=== PATIENT | male | born 1985 ===

== ENCOUNTER 2017-06-23 07:38 | Emergency (ER) | payer SELFPAY ==
[2017-06-23 07:48] VITALS: BP 125/82; PULSE 80; RESP 17; TEMP 98.9; O2SAT 98
--- NOTE | 2017-06-23 08:26 | C.PDOC ---
History Of Present Illness 31 yo male w/o significant PMHx come in for evaluation of cold sx associated with frontal intermittent headache, nasal congestion, runny nose, dry cough gradually developed for past 3 days. Otherwise, pt denies high fever, chills, severe headache, drooling, neck pain, dyspnea, SOB, wheezing, CP, palpitation, abd. pain, N/V/D, UTI sx. Ambulate to ED for evaluation, not in any apparent distress. Time Seen by Provider: 06/23/17 07:55 Chief Complaint (Nursing): Cough, Cold, Congestion History Per: Patient Past Medical History Reviewed: Historical Data, Nursing Documentation, Vital Signs Vital Signs: Last Vital Signs Temp 98.9 F 06/23/17 07:43 Pulse 80 06/23/17 07:43 Resp 17 06/23/17 07:43 BP 125/82 06/23/17 07:43 Pulse Ox 98 06/23/17 08:30 - Medical History PMH: No Chronic Diseases Surgical History: No Surg Hx Family History: States: No Known Family Hx - Social History Hx Tobacco Use: No Hx Alcohol Use: No Hx Substance Use: No - Immunization History Hx Influenza Vaccination: No Review Of Systems Except As Marked, All Systems Reviewed And Found Negative. Constitutional: Positive for: Malaise. Negative for: Fever, Chills ENT: Positive for: Nose Discharge, Nose Congestion. Negative for: Ear Discharge , Throat Pain, Throat Swelling Cardiovascular: Negative for: Chest Pain, Palpitations, Light Headedness Respiratory: Positive for: Cough. Negative for: Shortness of Breath, Wheezing Gastrointestinal: Negative for: Nausea, Vomiting, Abdominal Pain, Diarrhea Genitourinary: Negative for: Dysuria Musculoskeletal: Negative for: Neck Pain Skin: Negative for: Rash Neurological: Positive for: Headache. Negative for: Altered Mental Status, Dizziness Physical Exam - Physical Exam Appears: Well, Non-toxic, No Acute Distress Skin: Normal Color, Warm, Dry, No Rash Head: Normacephalic Eye(s): bilateral: PERRL Ear(s): Bilateral: Normal Nose: No Flaring, Discharge (scant clear rhinorrhea B/L) Oral Mucosa: Moist, No Drooling Throat: No Erythema, No Drooling Neck: Trachea Midline, Supple, Other ((-) meningeal sign) Cardiovascular: Rhythm Regular Respiratory: No Decreased Breath Sounds, No Accessory Muscle Use, No Stridor, No Wheezing Gastrointestinal/Abdominal: Soft, No Tenderness, No Distention, No Guarding Back: No CVA Tenderness Extremity: Normal ROM, No Deformity, No Swelling Neurological/Psych: Oriented x3, Normal Speech ED Course And Treatment O2 Sat by Pulse Oximetry: 98 Pulse Ox Interpretation: Normal Progress Note: On re-eval, pt is afebrile, hemodynamicaly stable. Non-toxic. PulseOx 98% RA. ENT: no acute findings. neck: Supple, (-) meningeal sign. Lungs: CTA B/L, BS equal B/L. Abd: benign. back: (-) CVA tenderness. Neuorlogicaly intact. Pt has clinical findings c/w bronchitis. Pt advised. ref. to F/U with PMD in 2-3 days for re-eval. return to ED if any worsening or new changes. Disposition Counseled Patient/Family Regarding: Diagnosis, Need For Followup, Rx Given - Disposition Referrals: [facility] [Outside] Disposition: HOME/ ROUTINE Disposition Time: 08:23 Condition: STABLE Additional Instructions: Encourage fluids Take medication as prescribed Follow up with PMD in 2-3 days for re-evaluation. Return to ED if any worsening or new changes. Prescriptions: Azithromycin [Zithromax] 250 mg PO DAILY #4 tab Benzonatate [Tessalon Perle] 100 mg PO TID #14 capsule Ibuprofen [Motrin Tab] 600 mg PO Q6 #20 tab Forms: [employer] (Filipino) Print Language: SAUDI ARABIAN - Clinical Impression Clinical Impression: Bronchitis
== END 2017-06-23 08:48 | disposition home or self-care (01) ==
LOC: C.ER 07:38
DX: J40 Bronchitis, not specified as acute or chronic (principal)

== ENCOUNTER 2017-08-06 14:12 | Emergency (ER) | payer OTHER ==
[2017-08-06 14:16] VITALS: BMI 33.3
[2017-08-06 14:19] VITALS: RESP 18
[2017-08-06] MEDS ORDERED: Iohexol 240 (50 ml) PO STA (14:52)
--- NOTE | 2017-08-06 14:52 | C.PDOC ---
History Of Present Illness VIA TRANS 32-YEAR-OLD MALE, PRESENTS TO THE EMERGENCY DEPARTMENT WITH CO PERSISTENT NON- BLOODY DIARRHEA SINCE 06/25, HE WAS GIVEN Z-SUZIE ON 06/23 FOR URI. ON SECOND DAY OF TAKING MEDS HE DEVELOPED DIARRHEA. HE STATES HE STOPPED MEDS, BUT NO IMPROV IN SX. STATES EVERY TIME HE EATS, HE HAS URGE TO GO THIRTY MINS AFTER. NO NAUSEA, + WATERY BM. DENIES FEVER, BACK PAIN, HEADACHE, DIZZINESS, OR ANY OTHER ASSOCIATED SYMPTOMS. NO OTHER COMPLAINTS AT THIS TIME. EXAM NEG Time Seen by Provider: 08/06/17 14:25 Chief Complaint (Nursing): GI Problem History Per: Patient History/Exam Limitations: no limitations Past Medical History Reviewed: Historical Data, Nursing Documentation, Vital Signs Vital Signs: Last Vital Signs Temp 98.3 F 08/06/17 18:17 Pulse 62 08/06/17 18:17 Resp 18 08/06/17 18:17 BP 118/73 08/06/17 18:17 Pulse Ox 98 08/06/17 18:17 Family History: States: Unknown Family Hx - Social History Hx Tobacco Use: No Hx Alcohol Use: No Hx Substance Use: No - Immunization History Hx Influenza Vaccination: No Review Of Systems Except As Marked, All Systems Reviewed And Found Negative. Constitutional: Negative for: Fever, Chills Cardiovascular: Negative for: Chest Pain, Palpitations Respiratory: Negative for: Shortness of Breath Gastrointestinal: Positive for: Diarrhea. Negative for: Nausea, Vomiting, Abdominal Pain Musculoskeletal: Negative for: Back Pain Skin: Negative for: Rash Neurological: Negative for: Weakness, Headache, Dizziness Physical Exam - Physical Exam Appears: Non-toxic, No Acute Distress Skin: Normal Color, Warm, Dry, No Rash Head: Atraumatic Eye(s): bilateral: Normal Inspection Nose: Normal Oral Mucosa: Moist Lips: Normal Appearing Neck: Normal ROM Chest: Symmetrical Cardiovascular: Rhythm Regular, No Murmur Respiratory: Normal Breath Sounds, No Accessory Muscle Use Gastrointestinal/Abdominal: Soft, No Tenderness, No Mass, No Distention, No Guarding, No Rebound Extremity: Normal ROM, No Deformity, No Swelling Neurological/Psych: Oriented x3, Normal Speech ED Course And Treatment - Laboratory Results Result Diagrams: 08/06/17 15:08 08/06/17 15:08 O2 Sat by Pulse Oximetry: 99 (RA) Pulse Ox Interpretation: Normal Progress - Data Reviewed Data Reviewed: Lab, Diagnostic imaging, Old records Disposition Counseled Patient/Family Regarding: Diagnosis, Need For Followup - Disposition Referrals: [facility] [Outside] [facility] [Outside] Disposition: HOME/ ROUTINE Disposition Time: 18:00 Condition: IMPROVED Additional Instructions: ARGUELLO PRUEBA DE ESTELLE, CT SCAN SON NORMALES. SEGUIMIENTO CON ARGUELLO PMD Y / O GASTROENTERLOGO. Prescriptions: Atropine/Diphenoxylate [Lonox 0.025 MG-2.5 MG] 1 tab PO TID PRN #20 tab PRN Reason: Diarrhea Instructions: Antibiotic-Associated Diarrhea (DC) Forms: Go Vocab (Italian) Print Language: IRISH - Clinical Impression Clinical Impression: Diarrhea - Scribe Statement The provider has reviewed the documentation as recorded by the Scribe (Deandra Jenkins) All medical record entries made by the Scribe were at my direction and personally dictated by me. I have reviewed the chart and agree that the record accurately reflects my personal performance of the history, physical exam, medical decision making, and the department course for this patient. I have also personally directed, reviewed, and agree with the discharge instructions and disposition.
[2017-08-06 15:11] LABS: BASO % 0.5 % (0.0-2.0); EOS # 0.5 K/uL (0.0-0.7); EOS % 6.6 % (0.0-4.0); HEMOGLOBIN 14.6 g/dL (12.0-18.0); LYMPH # 2.5 K/uL (1.0-4.3); LYMPH % 32.8 % (20.0-40.0); MEAN CELL VOLUME 72.5 fL (80.0-94.0); MEAN CORPUSCULAR HEMOGLOBIN 23.9 pg (27.0-31.0); MEAN CORPUSCULAR HGB CONC 32.9 g/dL (33.0-37.0); MEAN PLATELET VOLUME 8.3 fL (7.2-11.7); MONO # 0.7 K/uL (0.0-0.8); MONO % 8.7 % (0.0-10.0); NEUT # 3.9 K/uL (1.8-7.0); NEUT % 51.4 % (50.0-75.0); NRBC % 0.1 % (0.0-2.0); RBC 6.13 Mil/uL (4.40-5.90); WHITE BLOOD COUNT 7.5 K/uL (4.8-10.8)
[2017-08-06] MEDS ORDERED: Iohexol 240 (50 ml) ONE (15:20)
[2017-08-06] MEDS ORDERED: Iodixanol 320 MG/ML 100 ML BOTTLE IV ONE (15:27)
[2017-08-06 15:39] LABS: BLOOD UREA NITROGEN 10 mg/dL (9-20); CALCIUM 9.2 mg/dl (8.6-10.4); GFR AFRICAN-AMERICAN > 60; GFR NON-AFRICAN AMERICAN > 60
--- NOTE | 2017-08-06 17:57 | CT ---
PROCEDURE: CT Abdomen and Pelvis with contrast HISTORY: abd pain DIARRHEA COMPARISON: None. TECHNIQUE: Contrast dose: 100 mL Visipaque 320 Radiation dose: Total exam DLP = 577.9 mGy-cm. This CT exam was performed using one or more of the following dose reduction techniques: Automated exposure control, adjustment of the mA and/or kV according to patient size, and/or use of iterative reconstruction technique. FINDINGS: LOWER THORAX: Unremarkable. LIVER: Unremarkable. No gross lesion or ductal dilatation. GALLBLADDER AND BILE DUCTS: Unremarkable. PANCREAS: Unremarkable. No gross lesion or ductal dilatation. SPLEEN: Unremarkable. ADRENALS: Unremarkable. No mass. KIDNEYS AND URETERS: Unremarkable. No hydronephrosis. No solid mass. VASCULATURE: Unremarkable. No aortic aneurysm. BOWEL: Unremarkable. No obstruction. No gross mural thickening. APPENDIX: Normal appendix. PERITONEUM: Unremarkable. No free fluid. No free air. LYMPH NODES: Unremarkable. No enlarged lymph nodes. BLADDER: Unremarkable. REPRODUCTIVE: Unremarkable. BONES: No acute fracture. OTHER FINDINGS: None. IMPRESSION: Unremarkable contrast enhanced CT of the abdomen and pelvis.
[2017-08-06] MEDS ORDERED: Atropine-Diphenoxylate 0.025-2.5 mg Tab PO STA (17:58)
[2017-08-06] MEDS ORDERED: Atropine-Diphenoxylate 0.025-2.5 mg Tab ONE (18:06)
[2017-08-06 18:19] VITALS: BP 118/73; PULSE 62; TEMP 98.3
[2017-08-07 09:02] VITALS: O2SAT 99
== END 2017-08-06 18:31 | disposition home or self-care (01) ==
LOC: C.ER 14:12
DX: R19.7 Diarrhea, unspecified (principal)
CPT/HCPCS: 74177; 80048; 85025; 99284; Q9966; Q9967